=== PATIENT | male | born 1980 | race Caucasian/White ===

== ENCOUNTER 2016-06-24 05:30 | Emergency (ER) | payer SELFPAY ==
[~2016-06-24] VITALS: Ht 182.9 cm; Wt 77.6 kg
[2016-06-24 05:32] VITALS: BP 143/94; PULSE 89; TEMP 36.5; O2SAT 98; Ht 182.9 cm; Wt 77.6 kg
[2016-06-24] MEDS ORDERED: LORAZEPAM 1 MG TAB SL STA (05:36)
--- NOTE | 2016-06-24 05:54 | EMERGENCY ROOM VISIT NOTE ---
History First contact with patient: 05:36 Chief Complaint: ANXIETY Stated Complaint: ANXIETY, CHEST PAIN History of Present Illness The patient is a 35 year old male who presents to the Emergency Room with complaints of panic attack for the past 20 minutes. Patient states he has a history of anxiety he feels quite anxious and and is having chest pains with palpitations. He states he normally gets his with his anxiety. He is requesting an EKG and then it is requesting to leave. Patient denies dyspnea, drug use, abdominal pain, leg pain or swelling, headache, fever, cough, congestion, vomiting, diaphoresis. Patient states he was up all night talking with his friends and had a few drinks and does not feel intoxicated. No family history of heart disease. He states he does not do drugs. Review of Systems See HPI for pertinent positives & negatives. A total of 10 systems reviewed and were otherwise negative. Past Medical/Surgical History none Social History Smoking Status: Current Every Day Smoker Smokeless Tobacco Use: No Alcohol Use: occasionally Drug Use: none Marital Status: in relationship Current/Historical Medications No Active Prescriptions or Reported Meds Allergies Coded Allergies: No Known Allergies (Unverified , 06/24/16) Physical Exam Vital Signs Date Time Temp Pulse Resp B/P Pulse Ox O2 Delivery O2 Flow Rate FiO2 06/24/16 05:32 36.5 89 20 143/94 98 Room Air Physical Exam VITALS: Vitals are noted on the nurse's note and reviewed by myself. Vital signs stable. GENERAL: White male pacing anxious-appearing, in no acute distress, nondiaphoretic, well-developed well-nourished. SKIN: The skin was without rashes, erythema, edema, or bruising. There is no tenting of the skin. Capillary reflex less than 2 seconds. HEAD: Normocephalic atraumatic. EARS: External auditory canals clear, tympanic membranes pearly bauer without erythema or effusion bilaterally. EYES: Pupils equal round and reactive to light and accommodation. Conjunctivae without injection, sclerae without icterus. Extraocular movements intact. NOSE: Patent, turbinates without inflammation or discharge. MOUTH: Mucous membranes moist. Pharynx without erythema or exudate. Uvula midline. Airway patent. Tongue does not deviate. NECK: Supple without nuchal rigidity. No lymphadenopathy. No thyromegaly. Cervical spine is nontender. No JVD. HEART: Regular rate and rhythm without murmurs gallops or rubs. LUNGS: Clear to auscultation bilaterally without wheezes, rales or rhonchi. No dullness to percussion. No retractions or accessory muscle use. ABDOMEN: Positive bowel sounds x 4. Normal tympanic percussion. Soft, nontender, without masses or organomegaly. Wilkinson sign negative. No guarding or rebound tenderness. MUSCULOSKELETAL: No muscle atrophy, erythema, or edema noted. NEURO: Patient was alert and oriented to person place and time. Normal sensation to light and sharp touch. No focal neurological deficits. Medical Decision & Procedures Laboratory Results Test 06/24/16 05:41 ED Course Prior records/ancillary studies reviewed. Triage Nursing notes reviewed. Additional history obtained from girlfriend. The patient's history was concerning for chest pain. Differential diagnosis: Etiologies such as panic attack, cardiac ischemia, aortic dissection, pulmonary embolism, pneumonia, pneumothorax, musculoskeletal, infections, pericarditis, myocarditis, esophageal rupture, gastrointestinal, as well as others were entertained. Physical examination: As above. ER treatment provided: Patient refused any medications and is only wanting an EKG and then is requesting to leave On reassessment the patient felt better. Diagnostic interpretation by me: The electrocardiogram was negative for pathologic change. Normal sinus, normal intervals, no acute ST-T wave changes. Impression normal sinus rhythm interpreted by myself Patient refused all blood work and chest x-ray. Exam and history seem consistent with anxiety. Patient is refusing any other workup and is demanded to leave. He was informed that I cannot rule out any other etiologies without doing further testing. He understands this. He states he has a history of anxiety of symptoms and symptoms for similar. He was advised to follow-up family care in a few days or here in the ER sooner for chest pain, difficulty breathing, recent signs or symptoms or as needed. Patient denies any active medical problems or drug use. By the evaluation outlined above emergent etiologies such as cardiac ischemia, aortic dissection, pulmonary embolism, pneumonia, pneumothorax, infections, pericarditis, myocarditis, gastrointestinal, as well as others were deemed relatively unlikely. The pt informed about the findings as listed above. All questions were answered and pleased with the treatment. Return instructions were outlined and the patient was discharged in stable condition. Referral: The patient was referred back to primary care physician for follow-up in 2 to 3 days for a recheck of the current condition. Case reviewed with my attending. Medical Decision As above Impression Primary Impression: Acute anxiety Departure Information Dispostion Home / Self-Care Condition GOOD Prescriptions No Active Prescriptions or Reported Meds Referrals No Doctor, Assigned (PCP) Forms HOME CARE DOCUMENTATION FORM, IMPORTANT VISIT INFORMATION Patient Instructions Chest Pain - [facility], My [facility], ED Panic Attack Additional Instructions Recommend that you stop smoking. Rest and drink plenty of fluids as tolerated. Continue current medications. Avoid strenuous activities and anything that worsens your pain. Resume normal activities once your symptoms resolve. Return to the ER immediately for worsening or persistent chest pain, abdominal pain, vomiting, fevers, chest pains, difficulty breathing, worsening of your condition, or as needed. Follow up with your primary physician in 2-3 days for a recheck of your current condition.
== END 2016-06-24 06:00 | disposition home or self-care (01) ==
LOC: C.EDB 05:32
DX: F41.9 Anxiety disorder, unspecified (principal); F17.210 Nicotine dependence, cigarettes, uncomplicated

== ENCOUNTER 2016-08-08 18:37 | Emergency (ER) | payer SELFPAY ==
[~2016-08-08] VITALS: Ht 182.9 cm; Wt 90.2 kg
[2016-08-08 18:58] VITALS: TEMP 36.7; Ht 182.9 cm; Wt 90.2 kg
[2016-08-08] MEDS ORDERED: KETOROLAC TROMETHAMINE 30 MG/ML VIAL IV STA (19:31)
[2016-08-08] MEDS ORDERED: ALBUT/IPRATROP 3MG/0.5MG NEB 3 ML VIAL INH STA (19:36)
[2016-08-08] MEDS ORDERED: BENZONATATE 100MG CAP PO ONE (19:45)
[2016-08-08 19:58] LABS: BASO % 0.2 %; BASO ABS # 0.02 K/uL (0-0.2); COMPLETE YES; EOS % 3.8 %; HEMATOCRIT 48.5 % (42-52); IG% 0.2 %; LYMPH % 19.6 %; LYMPH ABS # 1.69 K/uL (1.2-3.4); MEAN CELL VOLUME 92.6 fL (80-100); MEAN CORPUSCULAR HEMOGLOBIN 32.6 pg (25-34); MEAN CORPUSCULAR HGB CONC 35.3 g/dl (32-36); MEAN PLATELET VOLUME 9.4 fL (7.4-10.4); MONO % 6.5 %; NEUT % 69.7 %; PLATELET COUNT 260 K/uL (130-400); RED BLOOD COUNT 5.24 M/uL (4.7-6.1); WHITE BLOOD COUNT 8.62 K/uL (4.8-10.8)
--- NOTE | 2016-08-08 20:26 | DIAGNOSTIC IMAGING REPORT ---
CHEST ONE VIEW PORTABLE CLINICAL HISTORY: Atypical chest pain. Cough. COMPARISON STUDY: No previous studies for comparison. FINDINGS: The cardiac and mediastinal contours are normal. There is no evidence of focal pulmonary consolidation. There is no evidence of failure. No pleural effusions are visualized.[ Foreshortening of the distal right clavicle is likely chronic. IMPRESSION: No active disease in the chest. Electronically signed by: Benny Myers M.D. 08/08/2016 8:25 PM Dictated Date/Time: 08/08/2016 8:24 PM
[2016-08-08 20:35] LABS: POTASSIUM 4.2 mmol/L (3.5-5.1); SODIUM 140 mmol/L (136-145)
[2016-08-08 20:47] LABS: BLOOD UREA NITROGEN 15 mg/dl (7-18); BUN/CREATININE RATIO 13.3 (10-20); CALCIUM 8.8 mg/dl (8.5-10.1); CARBON DIOXIDE 27 mmol/L (21-32); CHLORIDE 106 mmol/L (98-107); GLUCOSE 88 mg/dl (70-99)
[2016-08-08] MEDS ORDERED: BENZ100C18 PO (21:35)
[2016-08-08] MEDS ORDERED: HYDR5SYP11 PO (21:35)
[2016-08-08 21:43] VITALS: BP 131/88; PULSE 74; O2SAT 97
--- NOTE | 2016-08-08 23:29 | EMERGENCY ROOM VISIT NOTE ---
History Report prepared by [place]: Nilda Hansen Under the Supervision of: Dr. Ignacio Mercer D.O. First contact with patient: 19:21 Chief Complaint: COUGH Stated Complaint: CHST PAIN, EAR, COUGH X ONE MONTH History of Present Illness The patient is a 35 year old male who presents to the Emergency Room with complaints of a constant cough beginning 2 weeks ago. The patient states that his cough has been worse at night and in the morning. He complains of chest pain and soreness from coughing and he reports that he had multiple episodes of vomiting after coughing too much. He notes that he has a decreased appetite, right ear pain, back pain from coughing, tiredness, mild headaches, one episode of coughing up a small amount of blood, and a sore throat. The patient denies any arm pain, shortness of breath, leg pain, leg swelling, jaw pain, recent trips, recent antibiotics, and a history of blood clots. He reports that he has no history of sudden in the family, cancer, diabetes, high cholesterol, and heart disase. The patient notes that he has a history of anxiety and panic attacks. Source of History: patient Onset: 2 weeks ago Position: other (global) Quality: other (cough) Timing: constant Modifying Factors (Worsening): other (night and morning) Associated Symptoms: + back pain, + chest pain, + headache, + sorethroat, No SOB Note: He notes that he has a decreased appetite, right ear pain, tiredness, one episode of coughing up a small amount of blood. The patient denies any arm pain , leg pain, leg swelling, jaw pain, recent trips, recent antibiotics, and a history of blood clots. Review of Systems See HPI for pertinent positives & negatives. A total of 10 systems reviewed and were otherwise negative. Past Medical & Surgical Medical Problems: (1) Anxiety Family History No pertinent family history stated. Social History Smoking Status: Never Smoker Alcohol Use: occasionally Drug Use: none Marital Status: in relationship Occupation Status: employed Current/Historical Medications Scheduled Benzonatate (Tessalon Perles), 100 MG PO TID Scheduled PRN Hydrocodone W/ Homatropine (Hycodan 5/1.5MG 5 Ml), 5 ML PO HS PRN for coughing Allergies Coded Allergies: No Known Allergies (Unverified , 08/08/16) Physical Exam Vital Signs Date Time Temp Pulse Resp B/P Pulse Ox O2 Delivery O2 Flow Rate FiO2 08/08/16 21:43 74 16 131/88 97 08/08/16 20:49 80 18 130/84 96 Room Air 08/08/16 19:48 95 Room Air 08/08/16 19:45 69 18 139/103 95 Room Air 08/08/16 18:58 36.7 87 18 134/85 96 Room Air Physical Exam GENERAL: alert, sitting up in bed, disheveled, non-productive cough, well appearing, well nourished, no distress, non-toxic EYE EXAM: normal conjunctiva EARS: TMs clear bilateral OROPHARYNX: no exudate, no erythema, lips, buccal mucosa, and tongue normal and mucous membranes are moist NECK: supple, no nuchal rigidity, no adenopathy, non-tender LUNGS: Faint wheezing bilaterally. Normal chest wall mechanics HEART: no murmurs, S1 normal and S2 normal ABDOMEN: abdomen soft, non-tender, normo-active bowel sounds, no masses, no rebound or guarding. BACK: Back is symmetrical on inspection and there is no deformity, no midline tenderness, no CVA tenderness. SKIN: no rashes and no bruising UPPER EXTREMITIES: upper extremities are grossly normal. LOWER EXTREMITIES: No pitting edema. Calves are equal bilaterally. NEURO EXAM: Normal sensorium, cranial nerves II-XII grossly intact, normal speech, no gross weakness of arms, no gross weakness of legs. Medical Decision & Procedures ER Provider Diagnostic Interpretation: Radiology results as stated below per my review and the radiologist's interpretation: CHEST ONE VIEW PORTABLE FINDINGS: The cardiac and mediastinal contours are normal. There is no evidence of focal pulmonary consolidation. There is no evidence of failure. No pleural effusions are visualized.[ Foreshortening of the distal right clavicle is likely chronic. IMPRESSION: No active disease in the chest. Electronically signed by: Benny Myers M.D. 08/08/2016 8:25 PM Dictated Date/Time: 08/08/2016 8:24 PM Laboratory Results 08/08/16 19:50 Red Blood Count 5.24, Mean Corpuscular Volume 92.6, Mean Corpuscular Hemoglobin 32.6, Mean Corpuscular Hemoglobin Concent 35.3, Mean Platelet Volume 9.4, Neutrophils (%) (Auto) 69.7, Lymphocytes (%) (Auto) 19.6, Monocytes (%) (Auto) 6.5, Eosinophils (%) (Auto) 3.8, Basophils (%) (Auto) 0.2, Neutrophils # (Auto) 6.00, Lymphocytes # (Auto) 1.69, Monocytes # (Auto) 0.56, Eosinophils # (Auto) 0.33, Basophils # (Auto) 0.02 08/08/16 19:50 Test 08/08/16 19:50 08/08/16 20:23 White Blood Count 8.62 K/uL (4.8-10.8) Red Blood Count 5.24 M/uL (4.7-6.1) Hemoglobin 17.1 g/dL (14.0-18.0) Hematocrit 48.5 % (42-52) Mean Corpuscular Volume 92.6 fL (80-100) Mean Corpuscular Hemoglobin 32.6 pg (25-34) Mean Corpuscular Hemoglobin Concent 35.3 g/dl (32-36) Platelet Count 260 K/uL (130-400) Mean Platelet Volume 9.4 fL (7.4-10.4) Neutrophils (%) (Auto) 69.7 % Lymphocytes (%) (Auto) 19.6 % Monocytes (%) (Auto) 6.5 % Eosinophils (%) (Auto) 3.8 % Basophils (%) (Auto) 0.2 % Neutrophils # (Auto) 6.00 K/uL (1.4-6.5) Lymphocytes # (Auto) 1.69 K/uL (1.2-3.4) Monocytes # (Auto) 0.56 K/uL (0.11-0.59) Eosinophils # (Auto) 0.33 K/uL (0-0.5) Basophils # (Auto) 0.02 K/uL (0-0.2) RDW Standard Deviation 44.6 fL (36.4-46.3) RDW Coefficient of Variation 13.1 % (11.5-14.5) Immature Granulocyte % (Auto) 0.2 % Immature Granulocyte # (Auto) 0.02 K/uL (0.00-0.02) Anion Gap 7.0 mmol/L (3-11) Est Creatinine Clear Calc Drug Dose 104.9 ml/min Estimated GFR () 101.7 Estimated GFR (Non- 87.7 BUN/Creatinine Ratio 13.3 (10-20) Calcium Level 8.8 mg/dl (8.5-10.1) Troponin I < 0.015 ng/ml (0-0.045) D-Dimer < 190 ug/L FEU (0-500) Laboratory results per my review. Medications Administered Medications (Trade) Dose Ordered Sig/Theo Route Start Time Stop Time Status Last Admin Dose Admin Benzonatate (Tessalon Perles Cap) 100 mg NOW ONCE PO 08/08/16 19:45 08/08/16 19:46 DC 08/08/16 19:47 100 MG Ketorolac Tromethamine (Toradol Inj) 30 mg NOW STAT IV 08/08/16 19:31 08/08/16 19:33 DC 08/08/16 19:47 30 MG Albuterol/ Ipratropium (Duoneb) 3 ml NOW STAT INH 08/08/16 19:36 08/08/16 19:37 DC 08/08/16 19:47 3 ML ECG Indication: chest pain Rate (beats per minute): 61 Rhythm: sinus rhythm Findings: no ectopy, other (Normal [place]) ED Course ED COURSE: Vital signs were reviewed and normal The patients medical record was reviewed The above diagnostic studies were performed and reviewed. ED treatments and interventions as stated above. 1924: The patient was evaluated in room C10. A complete history and physical examination was performed. 1930: Toradol Inj 30mg IV. 1935: Duoneb 3ml INH. 1944: Tessalon Perles Cap 100mg PO. 2131: I reevaluated and updated the patient. He is feeling better. 2142: Upon reevaluation, the patient is dong well. I discussed my findings with the patient and he understands and agrees with the treatment plan. Based on the patients age, coexisting illnesses, exam and lab findings the decision to treat as an outpatient was made. The patient remained stable while under my care. The patient appeared well at the time of discharge. Medical Decision Differential diagnoses includes but is not limited to pneumonia, bronchitis, COPD/Asthma exacerbation, pneumothorax, pulmonary embolism, congestive heart failure, acute coronary syndrome Medication Reconciliation: I attest that I have personally reviewed the patient' s current medication list. Blood pressure screening: Patient was found to have normal blood pressure on screening and does not require follow-up. Patient is a 35-year-old male who presents to ER with a dry cough and earache and myalgias. Patient is otherwise well-appearing. CBC along with BMP and troponin were unremarkable. Troponin was negative with pain that has been present for greater than 8 hours. D-dimer was negative. EKG was unremarkable. Based on his symptoms I do believe that this is solely related to a URI. Patient was updated in regards to findings and was discharged to follow with primary care doctor. Discussed with Pt concerning signs and symptoms to watch out for. Pt was instructed to follow up with their PCP and discussed with the patient their option to return to the ED at anytime for persistent or worsening symptoms. The appropriate anticipatory guidance and out-patient management, including indications for return to the emergency department, were explained at length to the patient and understood. [place] Drug Monitoring Program Search Results: patient reviewed within database, no issues identified Impression Primary Impression: Cough Additional Impression: URI (upper respiratory infection) Scribe Attestation The scribe's documentation has been prepared under my direction and personally reviewed by me in its entirety. I confirm that the note above accurately reflects all work, treatment, procedures, and medical decision making performed by me. Departure Information Dispostion Home / Self-Care Prescriptions Hydrocodone W/ Homatropine (HYCODAN 5/1.5MG 5 ML) 1 Syp Syp 5 ML PO HS Y for coughing for 7 Days, #35 ML Prov: Ignacio Mercer, DO 08/08/16 Benzonatate (TESSALON PERLES) 100 Mg Cap 100 MG PO TID, #30 CAP Prov: Ignacio Mercer, DO 08/08/16 Referrals No Doctor, Assigned (PCP) Forms HOME CARE DOCUMENTATION FORM, IMPORTANT VISIT INFORMATION Patient Instructions ED URI Viral, My [facility] Additional Instructions Please follow up with your primary care doctor with in the next 24 hours. Any worsening of your symptoms, please return to the ED immediately. This includes fevers greater than 100.4, new or worsening chest pain, shortness breath, nausea vomiting or diarrhea. Please take Tessalon Perles as prescribed. You were given medications during this visit that will inhibit your ability to drive, operate machinery and work. Please do NOT drive, operate machinery or work for the next 12hrs. You were also given a prescription for a narcotic/ hycadon for coughing. Please only take this medication at night. While taking this medication you should also not drive, operate machinery and or work. Problem Qualifiers Additional Impression: URI (upper respiratory infection) URI type: unspecified URI Qualified Codes: J06.9 - Acute upper respiratory infection, unspecified
== END 2016-08-08 21:47 | disposition home or self-care (01) ==
LOC: C.EDB 18:39 → C.EDC 21:47
DX: J06.9 Acute upper respiratory infection, unspecified (principal); F41.9 Anxiety disorder, unspecified; Z79.899 Other long term (current) drug therapy